=== PATIENT | male | born 1945 | race Caucasian/White ===

== ENCOUNTER 2017-06-07 09:04 | Outpatient (CLI) | payer MEDICARE, OTHER ==
[2017-06-07 10:00] VITALS: BMI 30.4
[2017-06-07 11:44] LABS: Hematocrit 47.8 % (42.0-52.0); Mean Platelet Volume 7.3 fL (7.4-10.4); Red Blood Cell (RBC) Count 5.13 mill/uL (4.70-6.10); White Blood Cell (WBC) Count 7.3 thou/uL (4.8-10.8)
[2017-06-07 11:50] LABS: Bilirubin Negative (Negative); Blood, Urine Negative (Negative); Glucose, Urine (Dipstick) Negative (Negative); Ketone, Urine Negative (Negative); Nitrite Negative (Negative); PTT 27.9 SEC (22.9-36.1); Protein, Urine (Dipstick) Negative (Neg-Trace); Prothrombin Time 13.6 SEC (12.0-14.7); Urobilinogen 0.2 mg/dL (0.2-1.0)
[2017-06-07 11:52] LABS: Bacteria/HPF None Seen HPF (None Seen); Hyaline Casts/LPF 0-3 HYALINE CAST LPF (0-3 Hyaline); RBC/HPF 0-3 HPF (0-3); Squamous Epithelial None Seen HPF (0-3); WBC/HPF None Seen HPF (0-3)
[2017-06-07 12:01] LABS: Anion Gap 13 mmol/L (10-20); BUN (Urea Nitrogen) 17 mg/dL (8.4-25.7); Calc. Creatinine Clearance 89 mL/min (70-130); Calcium 9.7 mg/dL (7.8-10.44); Carbon Dioxide 27 mmol/L (23-31); Chloride 101 mmol/L (98-107); Estimated GFR-MDRD 75
== END 2017-06-07 09:05 | disposition home or self-care (01) ==
LOC: LABBT 09:04
PROVIDERS: ATTEND Orthopaedic Surgery
DX: Z01.818 Encounter for other preprocedural examination (principal); M17.12 Unilateral primary osteoarthritis, left knee
CPT/HCPCS: 80048; 81001; 85027; 85610; 85730; 86850; 86900; 86901; 87081; 93005; 93010

== ENCOUNTER 2017-06-07 09:30 | Inpatient (IN) | payer MEDICARE, OTHER ==
--- NOTE | 2017-06-09 22:26 | HP ---
DATE OF SERVICE: 06/14/2017 HISTORY OF PRESENT ILLNESS: The patient is a 71-year-old male who has had progressive problems with his right knee which have become much worse over the past 2 months. There has been no injury. The pain is very similar to what he had in his right knee prior to knee replacement surgery almost 3 ye ars ago. The pain is interfering with day-to-day activities including walking, getting dressed, and sleeping. He can no longer fully extend his knee. PAST MEDICAL HISTORY: As noted above. The patient has a history of hypertension, heart block, and arthritis. CURRENT MEDICATIONS: He normally takes Plavix but has stopped this one week preoperatively, but has continued aspirin. His other medications include vitamins, Zyrtec, amlodipine, hydrochlorothiazide and Zetia. ALLERGIES: He is allergic to KEFLEX and BETADINE. He has obtained cardiac clearance from Dr. Jace maguire. FAMILY HISTORY, SOCIAL HISTORY AND REVIEW OF SYSTEMS: Otherwise unremarkable. PHYSICAL EXAMINATION: GENERAL: Reveals a healthy male. HEENT: Unremarkable. NECK: Supple. CHEST: Clear. HEART: Regular rate and rhythm. ABDOMEN: Soft, nontender. RECTAL/GENITAL: Deferred. EXTREMITIES: Pertinent findings related to the left knee, there is mild varus. There is tenderness and crepitus over the medial joint line. Range of motion is 5-125 degrees. There are palpable dis sherry pulses. There is a left antalgic gait. NEUROVASCULAR: Intact. There is no instability. X-RAY FINDINGS: X-rays of the left knee reveal DJD and narrowing medially with only minimal joint s pace remaining with a definite progression from x-rays taken 2 years ago. IMPRESSION: 1. Degenerative arthritis of left knee. 2. History of atherosclerotic cardiovascular disease. 3. Status post right total knee replacement. PLAN: Left total knee replacement. The nature of the surgery, length of recovery, and potential co mplications such as infection, loss of motion, incomplete relief, delayed wound healing, neurovascul ar injury, thromboembolic phenomena, and possible transfusion have been discussed in detail as well as the possible need for revision.
[2017-06-14] MEDS ORDERED: Vancomycin HCl 1.5 GM, Admixture Fee 1 EACH in Sodium Chloride 0.9% 250 ML 300 ML IVPB SCH (08:45)
[2017-06-14] MEDS ORDERED: Levofloxacin 500 mg/D5W 100 ml Premix Bag ONE (08:55)
[2017-06-14] MEDS ORDERED: Ropivacaine 0.2% HCl/PF 20 ML ONE (09:07)
[2017-06-14] MEDS ORDERED: Midazolam HCl 2 mg/2 ml Vial ONE (09:07)
[2017-06-14] MEDS ORDERED: Fentanyl 100 MCG/2 ML VIAL ONE (09:07)
[2017-06-14] MEDS ORDERED: Tranexamic Acid 1,000 MG/100 ML BAG ONE ×2 (09:19→13:34)
[2017-06-14] MEDS ORDERED: Ondansetron HCl/PF 4 MG/2 ML Vial IVP PRN ×3 (09:27→14:35)
[2017-06-14] MEDS ORDERED: Zolpidem Tartrate 5 MG TAB PO PRN ×2 (09:27→14:35)
[2017-06-14] MEDS ORDERED: Promethazine HCl 25 MG/ML VIAL IM PRN ×2 (09:27→13:05)
[2017-06-14] MEDS ORDERED: traMADol HCl 50 MG TAB PO PRN ×2 (09:27)
[2017-06-14] MEDS ORDERED: Ropivacaine HCl/PF 250 ML in Premix Bag 1 BAG NERVE BLCK SCH (09:27)
[2017-06-14] MEDS ORDERED: Fentanyl 100 MCG/2 ML VIAL IV PRN (09:29)
[2017-06-14] MEDS ORDERED: Acetaminophen/Codeine 30-300mg Tablet PO PRN ×3 (09:31→14:35)
[2017-06-14] MEDS ORDERED: Ketorolac Tromethamine 30 MG/ML VIAL IVP SCH (12:00)
[2017-06-14] MEDS ORDERED: Propofol 200 MG/20 ML VIAL ONE (12:15)
[2017-06-14] MEDS ORDERED: ePHEDrine/0.9% NaCl/PF SYRINGE 50 mg/10 ml ONE (12:15)
[2017-06-14] MEDS ORDERED: PHENYLEPHRINE-NS 100 MCG/ML 10 ML SYRINGE ONE (12:15)
[2017-06-14] MEDS ORDERED: Promethazine HCl 25 MG/ML VIAL SLOW IVP PRN ×2 (13:05→14:35)
[2017-06-14] MEDS ORDERED: Tranexamic Acid 1,000 MG in Sodium Chloride 0.9% 100 ML IVPB SCH ×2 (13:45→14:35)
[2017-06-14] MEDS ORDERED: diphenhydrAMINE HCl 25 MG CAP PO PRN (14:35)
[2017-06-14] MEDS ORDERED: Fentanyl 100 MCG/2 ML VIAL SLOW IVP PRN ×2 (14:35)
[2017-06-14] MEDS ORDERED: Acetaminophen 325 MG TAB PO PRN (14:35)
--- NOTE | 2017-06-14 15:46 | PDOC.EVN ---
Event Note - Event Note Event Note: Consultation: [id number] L knee DJD * s/p L TKR today * doing well post-op * prn analgesics Atherosclerotic Vascular Disease * Plavix held intra-operatively - defer to ortho as to appropriate date to restart HTN * monitor BP and HR closely
[2017-06-14] MEDS: Sodium Chloride 0.9% 1,000 ML IV SCH ×2 (16:11→23:46)
--- NOTE | 2017-06-14 16:11 | RAD ---
TWO VIEWS LEFT KNEE: 06/14/17 HISTORY: Postop total knee. FINDINGS: Postop total knee replacement. FINDINGS: Postsurgical changes related to left total knee prosthesis are noted. No hardware complication is se en. There is no fracture or dislocation. Subcutaneous emphysema and edema are seen about the knee re lated to recent postsurgical change. IMPRESSION: Postsurgical change related to recent left total knee prosthesis. POS: [facility]
[2017-06-14] MEDS: traMADol HCl 50 MG TAB PO PRN (16:20)
[2017-06-14] MEDS: Ketorolac Tromethamine 30 MG/ML VIAL IVP SCH ×2 (16:26→23:00)
--- NOTE | 2017-06-14 17:17 | OP ---
DATE OF PROCEDURE: 06/14/2017 SURGEON: Jamil Charles M.D. ROD FILLER: Josh Andrade PA-C. ANESTHESIA: General plus femoral and sciatic nerve blocks. PREOPERATIVE DIAGNOSIS: Degenerative arthritis, left knee. POSTOPERATIVE DIAGNOSIS: Degenerative arthritis, left knee. PROCEDURES: Left total knee replacement with cemented Triathlon components with computer-assisted n avigation. NARRATIVE REPORT: After satisfactory anesthesia was induced in supine position, sequential compress ion device was placed on the non-operative leg throughout the procedure. The patient's left leg was then prepped and draped in routine sterile fashion, elevated and the tourniquet inflated to 300 mmH g. A gently curved medial parapatellar incision was then made and carried down to subcutaneous tiss ues. Bleeding points controlled with cautery. Medial parapatellar arthrotomy was performed. Paredes la dislocated laterally and portions of the fat pad were excised for exposure. There was marked deg enerative arthritis of the knee, especially medially, with large areas of exposed bone. Meniscal re mnants and osteophytes were removed. Using the [employer] pinless navigation system and the appropriat e guides, the distal femoral and proximal tibial articular surfaces were excised with an oscillating saw to accept the trial components. It was felt that a #5 femoral component and #5 tibial baseplat e with 9 mm CS plastic insert gave appropriate size, fit, stability, and correction of the preoperat rell deformity. The patellar articular surface was excised to accept an all plastic A32 patellar com ponent. There was good range of motion, good patellar tracking. The trial components were removed. The posterior capsule and subcutaneous tissues were injected with a mixture of 30 mL of 0.25% Mamadou meño and 60 mL of 1% lidocaine with epinephrine. The bony surfaces were thoroughly irrigated with p ulsatile lavage and the surfaces thoroughly cleaned and dried. The permanent components were then c emented in a single stage using 1 package of cement premixed with 1 gram of tobramycin powder. Exce ss cement was removed. There was again good fit and stability of the components. The knee was agai n irrigated. The medial retinaculum and quadriceps mechanism was closed with interrupted #2 Vicryl and a running #2 Quill. The subcutaneous tissues were closed with running 0 Quill suture and the sk in closed with running subcuticular 3-0 Monoderm and SurgiSeal skin adhesive. A sterile bulky compr essive dressing was applied and the tourniquet deflated after 59 minutes. The foot promptly pinked up. A sequential compression device was placed on his operated leg. He was then awakened and taken to recovery room in stable condition. There were no apparent intraoperative complications. The es timated blood loss was less than 100 mL
[2017-06-14] MEDS: Ferrous Gluconate 324 MG TAB PO SCH (20:41)
[2017-06-14] MEDS: Senokot S 8.6-50 MG TAB PO SCH (20:41)
[2017-06-14] MEDS: Aspirin 325 MG TAB PO SCH (20:41)
[2017-06-14] MEDS: Acetaminophen/Codeine 30-300mg Tablet PO PRN (20:54)
[2017-06-14] MEDS ORDERED: Vancomycin HCl 1.5 GM in Sodium Chloride 0.9% 250 ML 300 ML IVPB SCH (21:00)
--- NOTE | 2017-06-14 21:42 | CON ---
DATE OF CONSULTATION: 06/14/2017 at 3:39 p.m. CHIEF COMPLAINT: Left knee DJD with knee pain, status post left TKR today. HISTORY OF PRESENT ILLNESS: This is a very pleasant 71-year-old male who has been having chronic le ft knee pain secondary to degenerative joint disease. He is status post electrolytes TKR today. Th e procedure appears to have went well, he is complaining of moderate pain at this time. He denies a ny fevers, chills, chest pain or shortness of breath. He also denies any nausea, vomiting or headac hes. With regards to the patient's Plavix for which he takes for atherosclerotic cardiovascular disease, this has been held prior to his surgery. REVIEW OF SYSTEMS: A 14-point review of systems is negative except as otherwise indicated above in the HPI. PAST MEDICAL HISTORY: 1. Right knee DJD, status post right total knee replacement. 2. Left knee DJD, now status post left total knee replacement today. 3. Hypertension. PAST SURGICAL HISTORY: 1. Appendectomy. 2. Tonsillectomy. 3. Right TKR. 4. Left TKR today. FAMILY HISTORY: Positive for \\\\"heart problems.\\\\" SOCIAL HISTORY: The patient denies any tobacco, alcohol or illicit drug use currently. ALLERGIES AND MEDICATIONS: Reviewed, please refer to chart for details. PHYSICAL EXAMINATION: VITAL SIGNS: Reviewed, please refer to chart for details. GENERAL: The patient was lying comfortably in bed when I entered the room in no acute distress. HEENT: Normocephalic and atraumatic. NECK: Supple. No rigidity. LYMPH NODES: No cervical or supraclavicular lymphadenopathy. CARDIOVASCULAR: S1 and S2 audible with regular rate and rhythm. LUNGS: Clear to auscultation bilaterally with no wheezes, rales or rhonchi. ABDOMEN: Soft and nontender with positive bowel sounds. No guarding, rebound or rigidity. GENITOURINARY: No cerebrovascular accident tenderness bilaterally. No suprapubic tenderness either . MUSCULOSKELETAL: No calf tenderness bilaterally. EXTREMITIES: No clubbing or cyanosis of the extremities. The patient does have a left lower extrem ity wrap with ice pack on his left knee. I did not remove his dressings. PSYCHIATRIC: Appropriate and cooperative. NEUROLOGIC: Alert and oriented x3, answering questions appropriately with judgment intact. SKIN: Warm and dry with moist mucous membranes. LABS AND IMAGING: Prior to his surgery today, these have been reviewed. Please refer the chart for details. ASSESSMENT AND PLAN: This is a 71-year-old male presenting for elective left total knee replacement secondary to left knee degenerative joint disease. 1. Left knee degenerative joint disease, status post elective left total knee replacement today. T he patient is doing very well postoperatively. We will continue current p.r.n. analgesics and Ortho pedic Surgery is following. 2. Atherosclerotic cardiovascular disease. The patient's Plavix has been held prior to surgery, we will defer to Orthopedic Surgery as to the appropriate necessity of restarting. 3. Hypertension. Monitor blood pressure and heart rate closely. 4. We will check CBC and basal metabolic panel in the morning to monitor for acute blood loss anemi a secondary to surgery and any electrolyte derangements that may occur.
[2017-06-15] MEDS: Acetaminophen/Codeine 30-300mg Tablet PO PRN ×4 (01:17→20:19)
[2017-06-15 06:22] LABS: #Basophils 0.1 thou/uL (0.0-0.2); #Eosinphils 0.1 thou/uL (0.0-0.7); #Lymphocytes 2.2 thou/uL (1.20-3.40); #Monocytes 0.7 thou/uL (0.11-0.59); #Neutrophils 6.7 thou/uL (1.40-6.50); %Basophils 0.8 % (0.0-1.0); %Eosinophils 1.3 % (0.0-10.0); %Lymphocytes 22.5 % (21.0-51.0); %Monocytes 7.3 % (0.0-10.0); Hematocrit 37.5 % (42.0-52.0); Mean Platelet Volume 7.2 fL (7.4-10.4); Red Blood Cell (RBC) Count 4.02 mill/uL (4.70-6.10); White Blood Cell (WBC) Count 9.8 thou/uL (4.8-10.8)
[2017-06-15] MEDS: Ketorolac Tromethamine 30 MG/ML VIAL IVP SCH ×3 (06:24→22:55)
[2017-06-15 06:42] LABS: Anion Gap 7 mmol/L (10-20); BUN (Urea Nitrogen) 14 mg/dL (8.4-25.7); Calc. Creatinine Clearance 0 mL/min (70-130); Calcium 8.4 mg/dL (7.8-10.44); Carbon Dioxide 30 mmol/L (23-31); Chloride 101 mmol/L (98-107); Estimated GFR-MDRD Greater than 90
[2017-06-15] MEDS ORDERED: Mag-Al 1200 mg/1200 mg/30 ML UDCUP PO PRN (06:50)
[2017-06-15] MEDS ORDERED: Loperamide HCl 2 MG CAP PO PRN (06:50)
[2017-06-15] MEDS ORDERED: Milk Of Magnesia 30 ML UDCUP PO PRN (06:50)
[2017-06-15] MEDS ORDERED: Diabetic Tussin 200 MG/10 ML UDCUP PO PRN (06:50)
[2017-06-15] MEDS ORDERED: Eucerin (Mineral Oil/Petrolatum,White) 30 gm Jar TOP PRN (06:50)
[2017-06-15] MEDS ORDERED: Benzonatate 100 MG CAP PO PRN (06:50)
[2017-06-15] MEDS ORDERED: Ondansetron ODT 4 MG TAB PO PRN (06:50)
[2017-06-15] MEDS ORDERED: Senokot 8.6 MG TAB PO PRN (06:50)
[2017-06-15] MEDS: traMADol HCl 50 MG TAB PO PRN (07:48)
[2017-06-15] MEDS: Aspirin 325 MG TAB PO SCH ×2 (07:49→20:19)
[2017-06-15] MEDS: Famotidine 20 MG TAB PO SCH ×2 (07:50→20:20)
[2017-06-15] MEDS: Multivitamin W/ Minerals 1 TAB PO SCH (07:50)
[2017-06-15] MEDS: Ferrous Gluconate 324 MG TAB PO SCH ×2 (07:51→20:20)
[2017-06-15] MEDS: Senokot S 8.6-50 MG TAB PO SCH ×2 (07:51→20:20)
[2017-06-15] MEDS: Sodium Chloride 0.9% 1,000 ML IV SCH ×2 (11:42→19:38)
--- NOTE | 2017-06-15 11:57 | PDOC.PN ---
- Subjective Encounter Start Date: 06/15/17 Encounter Start Time: 07:15 -: old records requested/rev Patient seen and examined. No new complaints. No overnight events - Objective Resuscitation Status: Resuscitation Status FULL:Full Resuscitation MAR Reviewed: Yes Vital Signs & Weight: Vital Signs (12 hours) Temp Pulse Resp BP Pulse Ox 06/15/17 04:00 98.7 F 71 18 151/84 H 97 06/15/17 00:00 98.2 F 71 18 164/79 H 97 I&O: 06/14/17 06/15/17 06/16/17 06:59 06:59 06:59 Intake Total 3930.5 Output Total 2100 Balance 1830.5 Result Diagrams: 06/15/17 05:11 06/15/17 05:11 Phys Exam - Physical Examination Constitutional: NAD HEENT: PERRLA, moist MMs, sclera anicteric Neck: no JVD, supple Respiratory: no wheezing, no rales, no rhonchi Cardiovascular: RRR, no significant murmur, no rub Gastrointestinal: soft, non-tender, no distention, positive bowel sounds Musculoskeletal: no edema, pulses present left knee with dressing, nerve block in place Neurological: non-focal, normal sensation, moves all 4 limbs Psychiatric: normal affect, A&O x 3 Skin: no rash, normal turgor Dx/Plan (1) Status post total left knee replacement Code(s): Z96.652 - PRESENCE OF LEFT ARTIFICIAL KNEE JOINT Status: Acute (2) Dyslipidemia Code(s): E78.5 - HYPERLIPIDEMIA, UNSPECIFIED Status: Chronic (3) GERD (gastroesophageal reflux disease) Code(s): K21.9 - GASTRO-ESOPHAGEAL REFLUX DISEASE WITHOUT ESOPHAGITIS Status: Chronic (4) Hypertension Code(s): I10 - ESSENTIAL (PRIMARY) HYPERTENSION Status: Chronic (5) Osteoarthritis Code(s): M19.90 - UNSPECIFIED OSTEOARTHRITIS, UNSPECIFIED SITE Status: Chronic - Plan cont current plan of care, plan discussed w/ family, PT/OT * continue aspirin for DVT prophylaxis * continue pepcid for GI prophylaxis * nerve block as per anesthesia * PT/OT as per [facility] protocol treatment * code status - Full code * medication reviewed as below * symptomatic treatment * discussed with family. Review of Systems - Review of Systems ENT: negative: Ear Pain, Ear Discharge, Nose Pain, Nose Discharge, Nose Congestion, Mouth Pain, Mouth Swelling, Throat Pain, Throat Swelling, Other Respiratory: negative: Cough, Dry, Shortness of Breath, Hemoptysis, SOB with Excertion, Pleuritic Pain, Sputum, Wheezing Cardiovascular: negative: Chest Pain, Palpitations, Orthopnea, Paroxysmal Noc. Dyspnea, Edema, Light Headedness, Other Gastrointestinal: negative: Nausea, Vomiting, Abdominal Pain, Diarrhea, Constipation, Melena, Hematochezia, Other Genitourinary: negative: Dysuria, Frequency, Incontinence, Hematuria, Retention , Other Musculoskeletal: negative: Neck Pain, Shoulder Pain, Arm Pain, Back Pain, Hand Pain, Leg Pain, Foot Pain, Other Skin: negative: Rash, Lesions, Abilio, Bruising, Other - Medications/Allergies Allergies/Adverse Reactions: Allergies Allergy/AdvReac Type Severity Reaction Status Date / Time cephalexin monohydrate Allergy Verified 07/17/14 12:54 [From Keflex] povidone-iodine Allergy Verified 07/17/14 12:54 [From Betadine] soap [From Betadine] Allergy Verified 07/17/14 12:54 hydrocodone AdvReac Verified 08/03/15 18:46 honeydew melon Allergy Uncoded 07/23/14 18:52 Medications: Current Medications Acetaminophen (Tylenol) 650 mg PO Q4H PRN PRN Reason: INIGUEZ/ T > 101F; Mild Pain (1-3) Acetaminophen/Codeine Phosphate (Tylenol #3) 1 tab PO Q4H PRN PRN Reason: Moderate Pain (4-6) Acetaminophen/Codeine Phosphate (Tylenol #3) 2 tab PO Q4H PRN PRN Reason: Moderate Pain (4-6) 2ND LINE Last Admin: 06/15/17 10:08 Dose: 2 tab Al Hydroxide/Mg Hydroxide (Maalox) 15 ml PO Q4H PRN PRN Reason: Heartburn or Indigestion Aspirin (Aspirin) 325 mg PO BID [facility] Last Admin: 06/15/17 07:49 Dose: 325 mg Benzonatate (Tessalon) 100 mg PO Q4H PRN PRN Reason: Cough Diphenhydramine HCl (Benadryl) 25 mg PO Q6H PRN PRN Reason: Itching Famotidine (Pepcid) 20 mg PO BID [facility] Last Admin: 06/15/17 07:50 Dose: 20 mg Fentanyl (Sublimaze) 50 mcg SLOW IVP Q30MIN PRN PRN Reason: Severe Pain (7-10) Fentanyl (Sublimaze) 100 mcg SLOW IVP Q1H PRN PRN Reason: Severe Pain (7-10) Ferrous Gluconate (Fergon) 324 mg PO BID [facility] Last Admin: 06/15/17 07:51 Dose: 324 mg Guaifenesin (Robitussin Sf) 200 mg PO Q4H PRN PRN Reason: Cough Hydralazine HCl (Apresoline) 10 mg SLOW IVP Q4H PRN PRN Reason: Systolic BP > 180 Ropivacaine 250 ml/ Device 250 mls @ 0 mls/hr NERVE BLCK INF [facility] PRN Reason: As Directed Sodium Chloride (Normal Saline 0.9%) 1,000 mls @ 100 mls/hr IV .Q10H [facility] Last Admin: 06/15/17 11:42 Dose: Not Given Iron/Minerals/Multivitamins (Theragran M) 1 tab PO DAILY [facility] Last Admin: 06/15/17 07:50 Dose: 1 tab Ketorolac Tromethamine (Toradol) 15 mg IVP Q8HR [facility] Stop: 06/16/17 14:36 Last Admin: 06/15/17 06:24 Dose: 15 mg Loperamide HCl (Imodium) 2 mg PO PRN PRN PRN Reason: Diarrhea/Loose Stools Magnesium Hydroxide (Milk Of Magnesium) 30 ml PO DAILYPRN PRN PRN Reason: Constipation Mineral Oil/White Petrolatum (Eucerin Cream) 0 gm TOP BIDPRN PRN PRN Reason: Dry Skin Ondansetron HCl (Zofran) 4 mg IVP Q6H PRN PRN Reason: Nausea/Vomiting Ondansetron HCl (Zofran Odt) 4 mg PO Q6H PRN PRN Reason: Nausea/Vomiting Promethazine HCl (Phenergan) 12.5 mg IM Q4H PRN PRN Reason: Nausea Promethazine HCl (Phenergan) 12.5 mg SLOW IVP Q4H PRN PRN Reason: Nausea/Vomiting Senna (Senokot) 2 tab PO HSPRN PRN PRN Reason: Constipation Senna/Docusate Sodium (Senokot S) 2 tab PO BID [facility] Last Admin: 06/15/17 07:51 Dose: 2 tab Sodium Chloride (Flush - Normal Saline) 10 ml IVF PRN PRN PRN Reason: Saline Flush Tramadol HCl (Ultram) 100 mg PO Q6H PRN PRN Reason: Mild Pain (1-3) 2ND LINE Last Admin: 06/15/17 07:48 Dose: 100 mg Zolpidem Tartrate (Ambien) 5 mg PO HSPRN PRN PRN Reason: Insomnia
[2017-06-15 13:08] VITALS: BMI 30.4
[2017-06-15] MEDS ORDERED: Methocarbamol 500 MG TAB PO PRN (16:17)
[2017-06-16] MEDS: Sodium Chloride 0.9% 1,000 ML IV SCH (05:11)
[2017-06-16 05:44] LABS: #Basophils 0.1 thou/uL (0.0-0.2); #Eosinphils 0.2 thou/uL (0.0-0.7); #Monocytes 0.8 thou/uL (0.11-0.59); #Neutrophils 5.9 thou/uL (1.40-6.50); %Basophils 0.6 % (0.0-1.0); %Eosinophils 2.8 % (0.0-10.0); %Monocytes 9.6 % (0.0-10.0); Hematocrit 38.6 % (42.0-52.0); Red Blood Cell (RBC) Count 4.09 mill/uL (4.70-6.10); White Blood Cell (WBC) Count 7.9 thou/uL (4.8-10.8)
[2017-06-16] MEDS: Acetaminophen/Codeine 30-300mg Tablet PO PRN ×2 (05:46→11:28)
[2017-06-16] MEDS: Ketorolac Tromethamine 30 MG/ML VIAL IVP SCH ×2 (05:46→13:39)
[2017-06-16 06:00] LABS: Anion Gap 6 mmol/L (10-20); BUN (Urea Nitrogen) 12 mg/dL (8.4-25.7); Calc. Creatinine Clearance 101 mL/min (70-130); Calcium 8.7 mg/dL (7.8-10.44); Carbon Dioxide 32 mmol/L (23-31); Chloride 101 mmol/L (98-107); Estimated GFR-MDRD 88
[2017-06-16] MEDS: Aspirin 325 MG TAB PO SCH (08:12)
[2017-06-16] MEDS: Multivitamin W/ Minerals 1 TAB PO SCH (08:12)
[2017-06-16] MEDS: Ferrous Gluconate 324 MG TAB PO SCH (08:12)
[2017-06-16] MEDS: Famotidine 20 MG TAB PO SCH (08:13)
[2017-06-16] MEDS: Senokot S 8.6-50 MG TAB PO SCH (08:23)
[2017-06-16] MEDS ORDERED: Hydrochlorothiazide 25 MG TAB PO SCH (09:00)
[2017-06-16] MEDS ORDERED: Non-Formulary Item 1 EACH (Irbesartan/Hydrochlorothiazide [Irbesartan-Hctz 300-12.5 Mg Tb PO SCH (09:00)
[2017-06-16] MEDS ORDERED: Non-Formulary Item 1 EACH (Ubidecarenone [Coq-10] 200 MG) PO SCH (09:00)
[2017-06-16] MEDS ORDERED: Ubidecarenone 50 MG CAP PO SCH (09:00)
--- NOTE | 2017-06-16 10:06 | PDOC.PN ---
- Subjective Encounter Start Date: 06/16/17 Encounter Start Time: 07:30 Patient seen and examined. No new complaints. No overnight events - Objective Resuscitation Status: Resuscitation Status FULL:Full Resuscitation MAR Reviewed: Yes Vital Signs & Weight: Vital Signs (12 hours) Temp Pulse Resp BP Pulse Ox 06/16/17 08:12 80 06/16/17 08:00 98.1 F 75 18 177/94 H 95 06/16/17 07:23 98.7 F 80 18 06/16/17 04:43 98.7 F 80 18 170/85 H 96 06/16/17 00:43 98.7 F 100 18 153/77 H 94 L Weight Admit Weight 200 lb Weight 200 lb I&O: 06/15/17 06/16/17 06/17/17 06:59 06:59 06:59 Intake Total 3930.5 2241.5 Output Total 2100 1000 Balance 1830.5 1241.5 Result Diagrams: 06/16/17 05:15 06/16/17 05:15 Phys Exam - Physical Examination Constitutional: NAD HEENT: PERRLA, moist MMs, sclera anicteric Neck: no JVD, supple Respiratory: no wheezing, no rales, no rhonchi Cardiovascular: RRR, no significant murmur, no rub Gastrointestinal: soft, non-tender, no distention, positive bowel sounds Musculoskeletal: no edema, pulses present left knee with dressing Neurological: non-focal, normal sensation, moves all 4 limbs Psychiatric: normal affect, A&O x 3 Skin: no rash, normal turgor Dx/Plan (1) Status post total left knee replacement Code(s): Z96.652 - PRESENCE OF LEFT ARTIFICIAL KNEE JOINT Status: Acute (2) Dyslipidemia Code(s): E78.5 - HYPERLIPIDEMIA, UNSPECIFIED Status: Chronic (3) GERD (gastroesophageal reflux disease) Code(s): K21.9 - GASTRO-ESOPHAGEAL REFLUX DISEASE WITHOUT ESOPHAGITIS Status: Chronic (4) Hypertension Code(s): I10 - ESSENTIAL (PRIMARY) HYPERTENSION Status: Chronic (5) Osteoarthritis Code(s): M19.90 - UNSPECIFIED OSTEOARTHRITIS, UNSPECIFIED SITE Status: Chronic - Plan cont current plan of care, PT/OT * continue aspirin for DVT prophyalxis * continue protonix for GI prophylaxis * Nerve block as per anesthesia will be removed today * pain controlled * discussed with family * medication reviewed as below * symptomatic treatment * Code status- Full code * continue Ferrous sulfate * overall medically stable. * plan for discharge today * resume home medication * will sign off Review of Systems - Review of Systems ENT: negative: Ear Pain, Ear Discharge, Nose Pain, Nose Discharge, Nose Congestion, Mouth Pain, Mouth Swelling, Throat Pain, Throat Swelling, Other Respiratory: negative: Cough, Dry, Shortness of Breath, Hemoptysis, SOB with Excertion, Pleuritic Pain, Sputum, Wheezing Cardiovascular: negative: Chest Pain, Palpitations, Orthopnea, Paroxysmal Noc. Dyspnea, Edema, Light Headedness, Other Gastrointestinal: negative: Nausea, Vomiting, Abdominal Pain, Diarrhea, Constipation, Melena, Hematochezia, Other Genitourinary: negative: Dysuria, Frequency, Incontinence, Hematuria, Retention , Other Musculoskeletal: negative: Neck Pain, Shoulder Pain, Arm Pain, Back Pain, Hand Pain, Leg Pain, Foot Pain, Other - Medications/Allergies Allergies/Adverse Reactions: Allergies Allergy/AdvReac Type Severity Reaction Status Date / Time cephalexin monohydrate Allergy Verified 07/17/14 12:54 [From Keflex] povidone-iodine Allergy Verified 07/17/14 12:54 [From Betadine] soap [From Betadine] Allergy Verified 07/17/14 12:54 hydrocodone AdvReac Verified 08/03/15 18:46 honeydew melon Allergy Uncoded 07/23/14 18:52 Medications: Current Medications Acetaminophen (Tylenol) 650 mg PO Q4H PRN PRN Reason: INIGUEZ/ T > 101F; Mild Pain (1-3) Acetaminophen/Codeine Phosphate (Tylenol #3) 1 tab PO Q4H PRN PRN Reason: Moderate Pain (4-6) Acetaminophen/Codeine Phosphate (Tylenol #3) 2 tab PO Q4H PRN PRN Reason: Moderate Pain (4-6) 2ND LINE Last Admin: 06/16/17 05:46 Dose: 2 tab Al Hydroxide/Mg Hydroxide (Maalox) 15 ml PO Q4H PRN PRN Reason: Heartburn or Indigestion Amlodipine Besylate (Norvasc) 10 mg PO DAILY [facility] Last Admin: 06/16/17 08:12 Dose: 10 mg Aspirin (Aspirin) 325 mg PO BID [facility] Last Admin: 06/16/17 08:12 Dose: 325 mg Benzonatate (Tessalon) 100 mg PO Q4H PRN PRN Reason: Cough Coenzyme Q10 (Coenzyme Q10) 200 mg PO DAILY [facility] Last Admin: 06/16/17 08:13 Dose: 200 mg Diphenhydramine HCl (Benadryl) 25 mg PO Q6H PRN PRN Reason: Itching Famotidine (Pepcid) 20 mg PO BID [facility] Last Admin: 06/16/17 08:13 Dose: 20 mg Fentanyl (Sublimaze) 50 mcg SLOW IVP Q30MIN PRN PRN Reason: Severe Pain (7-10) Last Admin: 06/15/17 12:54 Dose: 50 mcg Fentanyl (Sublimaze) 100 mcg SLOW IVP Q1H PRN PRN Reason: Severe Pain (7-10) Ferrous Gluconate (Fergon) 324 mg PO BID [facility] Last Admin: 06/16/17 08:12 Dose: 324 mg Guaifenesin (Robitussin Sf) 200 mg PO Q4H PRN PRN Reason: Cough Hydralazine HCl (Apresoline) 10 mg SLOW IVP Q4H PRN PRN Reason: Systolic BP > 180 Last Admin: 06/15/17 20:20 Dose: 10 mg Hydrochlorothiazide (Hydrochlorothiazide) 12.5 mg PO DAILY [facility] Last Admin: 06/16/17 08:13 Dose: 12.5 mg Ropivacaine 250 ml/ Device 250 mls @ 0 mls/hr NERVE BLCK INF [facility] PRN Reason: As Directed Last Admin: 06/15/17 15:14 Dose: 250 mls Irbesartan (Avapro) 300 mg PO DAILY [facility] Last Admin: 06/16/17 08:14 Dose: 300 mg Iron/Minerals/Multivitamins (Theragran M) 1 tab PO DAILY [facility] Last Admin: 06/16/17 08:12 Dose: 1 tab Ketorolac Tromethamine (Toradol) 15 mg IVP Q8HR [facility] Stop: 06/16/17 14:36 Last Admin: 06/16/17 05:46 Dose: 15 mg Loperamide HCl (Imodium) 2 mg PO PRN PRN PRN Reason: Diarrhea/Loose Stools Loratadine (Claritin) 10 mg PO [facility] Magnesium Hydroxide (Milk Of Magnesium) 30 ml PO DAILYPRN PRN PRN Reason: Constipation Methocarbamol (Robaxin) 750 mg PO BIDPRN PRN PRN Reason: Muscle Spasm Last Admin: 06/15/17 20:35 Dose: 750 mg Mineral Oil/White Petrolatum (Eucerin Cream) 0 gm TOP BIDPRN PRN PRN Reason: Dry Skin Ondansetron HCl (Zofran) 4 mg IVP Q6H PRN PRN Reason: Nausea/Vomiting Ondansetron HCl (Zofran Odt) 4 mg PO Q6H PRN PRN Reason: Nausea/Vomiting Pitavastatin Calcium ([Livalo] 4 Mg) 0 each PO HS [facility] Promethazine HCl (Phenergan) 12.5 mg IM Q4H PRN PRN Reason: Nausea Promethazine HCl (Phenergan) 12.5 mg SLOW IVP Q4H PRN PRN Reason: Nausea/Vomiting Senna (Senokot) 2 tab PO HSPRN PRN PRN Reason: Constipation Senna/Docusate Sodium (Senokot S) 2 tab PO BID [facility] Last Admin: 06/16/17 08:23 Dose: Not Given Sodium Chloride (Flush - Normal Saline) 10 ml IVF PRN PRN PRN Reason: Saline Flush Last Admin: 06/16/17 05:47 Dose: 10 ml Tramadol HCl (Ultram) 100 mg PO Q6H PRN PRN Reason: Mild Pain (1-3) 2ND LINE Last Admin: 06/15/17 07:48 Dose: 100 mg Zolpidem Tartrate (Ambien) 5 mg PO HSPRN PRN PRN Reason: Insomnia
--- NOTE | 2017-06-16 12:51 | DIS ---
DATE OF ADMISSION: 06/14/2017 DATE OF DISCHARGE: 06/16/2017 PRIMARY CARE PHYSICIAN: Dr. Ekta Robins. DISCHARGE DISPOSITION: Home. PRIMARY DISCHARGE DIAGNOSIS: Status post left total knee replacement. SECONDARY DISCHARGE DIAGNOSES: Hypertension, dyslipidemia, gastroesophageal reflux disease, osteoar thritis. PRIMARY PROCEDURE/OPERATION: Left total knee replacement. RADIOLOGICAL INVESTIGATION: Knee x-ray. SIGNIFICANT LABORATORY DATA: Hemoglobin 12.8 and creatinine 0.86. DISCHARGE MEDICATIONS: Tylenol No. 3 one to two tablets q.6 hourly p.r.n., amlodipine 10 mg p.o. da emeka, aspirin 325 mg p.o. daily, cetirizine 10 mg p.o. at bedtime, Plavix 75 mg p.o. daily, valsartan with hydrochlorothiazide one tablet p.o. daily, Livalo 4 mg p.o. at bedtime, ranitidine 300 mg p.o. at bedtime, and Coenzyme Q10 200 mg p.o. daily. CONTRAINDICATIONS: None. CODE STATUS: FULL CODE. INPATIENT CONSULTANTS: Dr. Charles was primary sound team was consulted for medical management. ALLERGIES: KEFLEX and HYDROCODONE. DISCHARGE PLAN: Post hospital, the patient will follow up with Dr. Charles on 07/06/2017. The patien t will make appointment with primary care physician in 1 week. HOSPITAL COURSE: A 71-year-old female who was admitted by Dr. Charles for right total knee replacemen t which was done on 06/14/2017 without any complication. Postoperatively, the patient did very well , patient was given aspirin for DVT prophylaxis and Pepcid for GI prophylaxis. Today, patient is pl anned for discharge, we will sign off today. The patient is seen and examined at bedside today. Pl ease see my progress note from today for further details. On discharge, patient will resume all her home medication.
[2017-06-16] MEDS ORDERED: Lidocaine 2% Viscous Solution 10 ML, Aluminum & Magnesium Hydroxide 30 ML SSW SCH ×2 (13:30)
[2017-06-16 13:42] LABS: Troponin I 0.012 ng/mL (< 0.028)
[2017-06-16 15:42] VITALS: BP 170/77; TEMP 98.3
[2017-06-16] MEDS ORDERED: Cetirizine HCl 10 MG TAB PO SCH (21:00)
[2017-06-16] MEDS ORDERED: Loratadine 10 MG TAB PO SCH (21:00)
[2017-06-16] MEDS ORDERED: Non-Formulary Item 1 EACH (Pitavastatin Calcium [Livalo] 4 MG) PO SCH (21:00)
[2017-06-16] MEDS ORDERED: Pitavastatin Calcium [Livalo] 4 MG PO SCH (21:00)
== END 2017-06-16 16:26 | disposition home or self-care (01) | DRG 470 ==
LOC: SJJU 06-14 08:13
PROVIDERS: ADMIT Orthopaedic Surgery; ATTEND Orthopaedic Surgery
PROC: 0SRC0J9 Replacement of Right Knee Joint with Synthetic Substitute, Cemented, Open Approach (ICD-10-PCS; principal; 2017-06-14)
PROC: 3E0T3BZ Introduction of Anesthetic Agent into Peripheral Nerves and Plexi, Percutaneous Approach (ICD-10-PCS; 2017-06-14)
PROC: 8E0YXBZ Computer Assisted Procedure of Lower Extremity (ICD-10-PCS; 2017-06-14)
DX: M17.12 Unilateral primary osteoarthritis, left knee (principal); I10 Essential (primary) hypertension; K21.9 Gastro-esophageal reflux disease without esophagitis; E78.5 Hyperlipidemia, unspecified; I25.10 Atherosclerotic heart disease of native coronary artery without angina pectoris; Z88.1 Allergy status to other antibiotic agents; Z91.09 Other allergy status, other than to drugs and biological substances; Z96.651 Presence of right artificial knee joint; Z88.5 Allergy status to narcotic agent
CPT/HCPCS: 36415; 80048; 82553; 83690; 84484; 85025; 93005; 93010; C1713; C1776; G8978-GP-CM; G8979-GP-CJ; J0360; J1170; J1885; J1956; J2250; J2704; J2795; J3010; J3370; J7050; Q0162

== ENCOUNTER 2017-08-05 16:17 | Observation (INO) | payer MEDICARE, OTHER ==
--- NOTE | 2017-08-05 16:46 | RAD ---
AP VIEW OF THE CHEST 08/05/17 INDICATION: Back pain. IMPRESSION: No acute cardiopulmonary abnormality. The examination is not appreciably changed from comparison date d 08/03/15. POS: [facility]
[2017-08-05 16:57] LABS: #Basophils 0.1 thou/uL (0.0-0.2); #Eosinphils 0.2 thou/uL (0.0-0.7); #Monocytes 0.5 thou/uL (0.11-0.59); %Basophils 0.8 % (0.0-1.0); %Eosinophils 2.2 % (0.0-10.0); %Lymphocytes 22.7 % (21.0-51.0); %Monocytes 5.8 % (0.0-10.0); Hematocrit 45.1 % (42.0-52.0); Mean Platelet Volume 6.2 fL (7.4-10.4); Red Blood Cell (RBC) Count 4.79 mill/uL (4.70-6.10); White Blood Cell (WBC) Count 8.7 thou/uL (4.8-10.8)
[2017-08-05 17:24] LABS: Troponin I Less than 0.010 ng/mL (< 0.028)
[2017-08-05 17:26] LABS: ALT (SGPT) 12 U/L (8-55); AST (SGOT) 19 U/L (5-34); Alkaline Phosphatase 60 U/L (40-150); Anion Gap 12 mmol/L (10-20); BUN (Urea Nitrogen) 17 mg/dL (8.4-25.7); Bilirubin, Total 0.5 mg/dL (0.2-1.2); CK (CPK) 124 U/L (30-200); Calc. Creatinine Clearance 0 mL/min (70-130); Calcium 9.8 mg/dL (7.8-10.44); Carbon Dioxide 30 mmol/L (23-31); Chloride 100 mmol/L (98-107); Estimated GFR-MDRD 90; Globulin 3.3 g/dL (2.4-3.5); Lipase 23 U/L (8-78); Protein, Total 7.9 g/dL (5.8-8.1)
[2017-08-05 17:41] LABS: Bilirubin Negative (Negative); Blood, Urine Negative (Negative); Glucose, Urine (Dipstick) Negative (Negative); Ketone, Urine Negative (Negative); Nitrite Negative (Negative); Protein, Urine (Dipstick) Negative (Neg-Trace); Urobilinogen 0.2 mg/dL (0.2-1.0)
[2017-08-05 21:03] LABS: Troponin I Less than 0.010 ng/mL (< 0.028)
[2017-08-05] MEDS ORDERED: Aspirin 325 MG TAB PO SCH (22:30)
[2017-08-05] MEDS ORDERED: Sodium Chloride 0.9% 1,000 ML IV SCH (22:30)
[2017-08-05 22:35] VITALS: BMI 30.5
[2017-08-05 23:12] LABS: Troponin I Less than 0.010 ng/mL (< 0.028)
[2017-08-05] MEDS ORDERED: Milk Of Magnesia 30 ML UDCUP PO PRN (23:22)
[2017-08-05] MEDS ORDERED: Acetaminophen 325 MG TAB PO PRN (23:22)
[2017-08-05] MEDS ORDERED: hydrALAZINE 20 MG/ML VIAL SLOW IVP PRN (23:22)
[2017-08-05] MEDS ORDERED: Nitroglycerin 0.4 MG TAB (25 Tab Bottle) PO PRN (23:22)
[2017-08-05] MEDS ORDERED: Senokot 8.6 MG TAB PO PRN (23:22)
[2017-08-05] MEDS ORDERED: cloNIDine 0.1 MG TAB PO PRN (23:22)
[2017-08-05] MEDS ORDERED: Calcium Carbonate 500 MG ChewTAB PO PRN (23:22)
[2017-08-05] MEDS ORDERED: PROVENTIL INHALER 6.7 G (200 INHALATIONS) INH PRN (23:28)
--- NOTE | 2017-08-06 00:17 | HP ---
DATE OF ADMISSION: 08/05/2017 PRIMARY CARE PHYSICIAN: Dr. Dash. PRIMARY FOIL OPERATOR: Dr. Mcintyre. CHIEF COMPLAINT: Chest discomfort. CODE STATUS: FULL CODE. SURROGATE DECISION-MAKER: Patient makes his own decisions with the help of his family. HISTORY OF PRESENT ILLNESS: Patient is a 72-year-old white male with coronary artery disease, hypert ension, hyperlipidemia, and GERD, presented to the emergency room with chest discomfort. Earlier today while he was at home, he developed chest discomfort that was mainly localized around th e neck radiating to his jaw. He also had difficulty swallowing. He checked his blood pressure at th at time, which was in systolic 200s. The severity was 5/10, dull in nature without any aggravating o r relieving factor. He took 325 aspirin and presented to the emergency room. In the emergency room, his EKG showed normal sinus rhythm without significant ST-T wave changes. Troponins were normal. I nitial vital signs showed temperature 98.5, respiration 18, pulse of 82, blood pressure 172/99 with O 2 saturation 97% on room air. Patient recently underwent left total knee replacement. He also notic ed some swelling along with discomfort in the left leg. He also gets some shortness of breath on mod erate exertion. PAST MEDICAL HISTORY: 1. Coronary artery disease with last cardiac catheterization in 2010 that was positive for coronary artery disease. Medical management was recommended. 2. Hypertension. 3. Obstructive sleep apnea. 4. Gastroesophageal reflux disease. 5. Mild intermittent asthma. PAST SURGICAL HISTORY: 1. Cardiac catheterization in 2010. 2. Appendectomy. 3. Bilateral knee replacement. 4. Tonsillectomy. ALLERGIES: Patient is allergic to KEFLEX, HYDROCODONE, IODINE. CURRENT HOME MEDICATIONS: Proventil 2 puffs as needed, amlodipine 10 mg daily, aspirin 325 mg daily, Zyrtec 10 mg at bedtime, Plavix 75 mg daily, Zetia 10 mg daily, irbesartan/HCTZ 300/12.5 daily, Liva lo 2 mg daily, ranitidine 300 mg at bedtime, Coenzyme Q10 400 mg daily. SOCIAL HISTORY: He drinks socially. Denies any smoking or drug use. FAMILY HISTORY: Positive for several family members with coronary artery disease. Sister with coron renee artery disease at age of 37. One brother of complications from heart disease at age of 69. REVIEW OF SYSTEMS: The following complete review of systems was negative, unless otherwise mentioned in the HPI or below: CONSTITUTIONAL: Weight loss or gain, ability to conduct usual activities. SKIN: Rash, itching. EYES: Double vision, pain. ENT/MOUTH: Nose bleeding, neck stiffness, pain, tenderness. CARDIOVASCULAR: Palpitations, dyspnea on exertion, orthopnea. RESPIRATORY: Shortness of breath, wheezing, cough, hemoptysis, fever or night sweats. GASTROINTESTINAL: Poor appetite, abdominal pain, heartburn, nausea, vomiting, constipation, or diarr hea. GENITOURINARY: Urgency, frequency, dysuria, nocturia. MUSCULOSKELETAL: Pain, swelling. NEUROLOGIC/PSYCHIATRIC: Anxiety, depression. ALLERGY/IMMUNOLOGIC: Skin rash, bleeding tendency. PHYSICAL EXAMINATION: VITAL SIGNS: As discussed above. GENERAL: A 72-year-old male in no apparent distress, chest discomfort has improved. HEENT: Head atraumatic, normocephalic. Sclerae are anicteric. Moist mucous membranes. No oral les ion. NECK: Supple, no JVD appreciated. No carotid bruit. LUNGS: Clear to auscultation bilaterally, no wheezing, rales, or rhonchi. HEART: S1, S2 present, 2/6 systolic murmur over the left lateral sternal border. No heaves or pulsa tion. ABDOMEN: Soft, nontender, bowel sounds present. EXTREMITIES: 1+ edema in left lower extremity with some tenderness. Right lower extremity without a ny tenderness. SKIN: Warm and dry. LYMPH NODES: No palpable lymph nodes in the neck. PERIPHERAL VASCULAR: Radial pulses palpable bilaterally. MUSCULOSKELETAL: No joint swelling or tenderness. LABORATORY FINDINGS: CBC showed WBC of 8.7, hemoglobin 15.1, hematocrit 45.1, platelet 313. [employer] marlee showed sodium 138, potassium 4, chloride 100, bicarb 30, BUN 12, creatinine of 0.84. Troponins were normal. Urinalysis was negative for wbc bacteria. EKG by my review as discussed above. Chest x-ray by my review was negative for infiltrate. IMPRESSION: 1. Chest discomfort. Patient has history of coronary artery disease with last cardiac catheterizati on [place] [address] Mcintyre. 2. Hypertension 3. Hyperlipidemia. 4. Obstructive sleep apnea. 5. Chronic kidney disease stage 2. 6. Obesity with a BMI 30.5. 7. Gastroesophageal reflux disease. 8. Mild intermittent asthma. PLAN: Patient will be monitored on the telemetry unit. Cardiology will be consulted. Patient had a dverse reaction during the chemical stress test last time per patient report. We will resume his raquel e medications. We will keep him n.p.o. past midnight. Further management per Cardiology. Due to re cent surgery as well as left leg swelling, we will rule out deep venous thrombosis.
--- NOTE | 2017-08-06 07:46 | ULT ---
BILATERAL LOWER EXTREMITY VENOUS DOPPLER ULTRASOUND: HISTORY: Bilateral lower extremity edema. Recent left knee replacement in May 2017. TECHNIQUE: Sommers scale ultrasound with color flow and spectral Doppler imaging of the deep venous systems of the lower extremities was performed bilaterally. FINDINGS: There is good flow, compression, and augmentation noted in the common femoral, femoral, deep femoral, popliteal, posterior tibial, and greater saphenous veins on either side. IMPRESSION: No evidence of deep vein thrombosis in either lower extremity. POS: [facility]
[2017-08-06] MEDS ORDERED: Ezetimibe 10 MG TAB PO SCH (09:00)
[2017-08-06] MEDS ORDERED: Clopidogrel Bisulfate 75 MG TAB PO SCH (09:00)
[2017-08-06] MEDS ORDERED: Ubidecarenone 50 MG CAP PO SCH (09:00)
[2017-08-06] MEDS ORDERED: Amlodipine 10 MG TAB PO SCH ×2 (09:00→21:00)
[2017-08-06] MEDS ORDERED: Aspirin 325 MG TAB PO SCH (09:00)
[2017-08-06] MEDS ORDERED: Hydrochlorothiazide 25 MG TAB PO SCH (09:00)
[2017-08-06] MEDS ORDERED: Famotidine 20 MG TAB PO SCH (09:00)
[2017-08-06] MEDS ORDERED: Regadenoson 0.4 MG/5 ML SYRINGE ONE (11:17)
--- NOTE | 2017-08-06 14:03 | PDOC.PN ---
- Subjective Encounter Start Date: 08/06/17 Encounter Start Time: 09:30 Patient seen and examined. No new complaints. No overnight events - Objective Resuscitation Status: Resuscitation Status FULL:Full Resuscitation MAR Reviewed: Yes Vital Signs & Weight: Vital Signs (12 hours) Temp Pulse Resp BP Pulse Ox 08/06/17 07:56 88 08/06/17 07:45 97.5 F L 88 18 08/06/17 07:35 97.5 F L 88 18 134/82 98 08/06/17 04:05 98.1 F 76 18 135/76 97 Weight Admit Weight 200 lb 12.8 oz Weight 200 lb 12.8 oz I&O: 08/05/17 08/06/17 08/07/17 06:59 06:59 06:59 Intake Total 800 Output Total 650 Balance 150 Result Diagrams: 08/05/17 16:47 08/05/17 16:47 EKG Reviewed by me: Yes (Tele SR) Phys Exam - Physical Examination Constitutional: NAD Respiratory: no wheezing, no rhonchi Cardiovascular: RRR, no rub Gastrointestinal: soft, non-tender, positive bowel sounds Musculoskeletal: no edema Neurological: moves all 4 limbs Dx/Plan - Plan DVT proph w/SCDs IMPRESSION: 1. Chest discomfort. Patient has history of coronary artery disease with last cardiac catheterization [place] [address] Mcintyre. 2. Hypertension 3. Hyperlipidemia. 4. Obstructive sleep apnea. 5. Chronic kidney disease stage 2. 6. Obesity with a BMI 30.5. 7. Gastroesophageal reflux disease. 8. Mild intermittent asthma. PLAN: * Await Cardiology input * NPO * Cont current meds as below Review of Systems - Review of Systems Respiratory: negative: Cough, Dry, Shortness of Breath, Hemoptysis, SOB with Excertion, Pleuritic Pain, Sputum, Wheezing Cardiovascular: negative: Chest Pain, Palpitations, Orthopnea, Paroxysmal Noc. Dyspnea, Edema, Light Headedness - Medications/Allergies Allergies/Adverse Reactions: Allergies Allergy/AdvReac Type Severity Reaction Status Date / Time cephalexin monohydrate Allergy Verified 07/17/14 12:54 [From Keflex] povidone-iodine Allergy Verified 07/17/14 12:54 [From Betadine] soap [From Betadine] Allergy Verified 07/17/14 12:54 hydrocodone AdvReac Verified 08/03/15 18:46 honeydew melon Allergy Uncoded 07/23/14 18:52 Medications: Current Medications Acetaminophen (Tylenol) 650 mg PO Q4H PRN PRN Reason: Headache/Fever or Pain Albuterol Sulfate (Proventil Hfa) 2 puff INH Q4H PRN PRN Reason: SOB &/or Wheezing Amlodipine Besylate (Norvasc) 10 mg PO DAILY [facility] Last Admin: 08/06/17 07:56 Dose: Not Given Aspirin (Aspirin) 325 mg PO DAILY [facility] Last Admin: 08/06/17 07:56 Dose: Not Given Atorvastatin Calcium (Lipitor) 10 mg PO HS [facility] Calcium Carbonate (Tums) 1,000 mg PO Q4H PRN PRN Reason: Heartburn or Indigestion Cetirizine HCl (Zyrtec) 10 mg PO HS [facility] Clonidine (Catapres) 0.1 mg PO Q4H PRN PRN Reason: Systolic BP > 180 Clopidogrel Bisulfate (Plavix) 75 mg PO DAILY [facility] Last Admin: 08/06/17 07:56 Dose: Not Given Coenzyme Q10 (Coenzyme Q10) 400 mg PO DAILY [facility] Last Admin: 08/06/17 07:56 Dose: Not Given Ezetimibe (Zetia) 10 mg PO DAILY [facility] Last Admin: 08/06/17 07:56 Dose: Not Given Famotidine (Pepcid) 20 mg PO BID [facility] Last Admin: 08/06/17 07:56 Dose: Not Given Hydralazine HCl (Apresoline) 10 mg SLOW IVP Q4H PRN PRN Reason: SBP Greater Than 180 Hydrochlorothiazide (Hydrochlorothiazide) 12.5 mg PO DAILY [facility] Last Admin: 08/06/17 07:56 Dose: Not Given Irbesartan (Avapro) 300 mg PO DAILY [facility] Last Admin: 08/06/17 07:56 Dose: Not Given Magnesium Hydroxide (Milk Of Magnesium) 30 ml PO DAILYPRN PRN PRN Reason: Constipation Nitroglycerin (Nitrostat) 0.4 mg PO Q5MIN PRN PRN Reason: Chest Pain Senna (Senokot) 2 tab PO HSPRN PRN PRN Reason: Constipation Sodium Chloride (Flush - Normal Saline) 10 ml IVF PRN PRN PRN Reason: Saline Flush
[2017-08-06 16:08] VITALS: BP 145/78; TEMP 98
--- NOTE | 2017-08-06 19:13 | CON ---
DATE OF CONSULTATION: 08/06/2017 REASON FOR CONSULTATION: Throat and neck pain. HISTORY OF PRESENT ILLNESS: Mr. Martinez is a very pleasant 72-year-old gentleman with history of sing le vessel coronary artery disease with calcified left anterior descending artery stenosis. The patie ru underwent successful knee surgery recently with knee replacement and he was doing well. The patie nt yesterday he had severe episode of tightness in the neck and throat that associated with severe hy pertension. The patient had nitroglycerin to take at home, but did not do that he went ahead and rafiq t to the emergency room. He was found to be very hypertensive. The patient went to the emergency ro om. The EKGs were normal. Troponins were also normal. Blood pressure was very high. PAST MEDICAL HISTORY: 1. Coronary artery disease. 2. Hypertension. 3. Esophageal reflux. 4. Obstructive sleep apnea. PAST SURGICAL HISTORY: Knee replacement done recently. ALLERGIES: KEFLEX and CODEINE as well as IODINE. HOME MEDICATIONS: 1. Proventil. 2. Amlodipine. 3. Plavix. 4. Zetia. 5. Irbesartan HCT. 6. Livalo. SOCIAL HISTORY: Drinks socially. FAMILY HISTORY: Positive for coronary artery disease. REVIEW OF SYSTEMS: CONSTITUTIONAL: No significant weight gain or loss. VISION: No changes. HEARING: No changes. PULMONARY: No cough or wheezing. GASTROINTESTINAL: No nausea, vomiting or diarrhea. SKIN: No rashes. NEUROLOGIC: No unilateral weakness or numbness. PSYCHIATRIC: No unusual depression or anxiety. PHYSICAL EXAMINATION: GENERAL: A pleasant gentleman resting comfortably in no distress. VITAL SIGNS: Blood pressure is 145/78, pulse 70. HEENT: Eyes: Sclerae nonicteric. Mouth mucous membranes moist. NECK: Supple, no lymphadenopathy. LUNGS: Clear, no wheezing, rales or rhonchi. CARDIAC: Normal S1, normal S2. There is no murmur, rub or gallop. ABDOMEN: Soft, nontender. EXTREMITIES: No clubbing, no cyanosis. There is no edema. PERTINENT LABORATORY: Cardiac enzymes were all negative. ASSESSMENT: 1. Chest pain of uncertain etiology. 2. Single vessel coronary artery disease based on catheterization in 2010, calcified lesion in his L AD after diagonal branch. 3. IODINE allergy. PLAN: 1. Proceed with stress testing. 2. If he is okay, he would go home with a Protonix in case this is esophageal in nature. 3. Increase amlodipine to 10 mg twice a day.
--- NOTE | 2017-08-06 19:58 | DIS ---
DATE OF DISCHARGE: DISCHARGE DISPOSITION: Home. FOLLOWUP: 1. Follow up with primary care physician, Dr. Dash in 1 week. 2. Follow up with Dr. Mcintyre in 1-2 weeks. ALLERGIES: The patient is allergic to KEFLEX, IODINE, and HYDROCODONE. The patient was seen and examined on the day of discharge, denies any new complaints. BRIEF HOSPITAL COURSE: The patient is a 72-year-old male with coronary artery disease, hypertension, hyperlipidemia, and GERD, who presented to the hospital with chest discomfort. Please refer to the history and physical dated 08/05/2017 for further details. The patient was admitted to the hospital with the diagnosis of chest discomfort, rule out acute coron renee syndrome. His serial cardiac enzymes were negative. He also had elevated blood pressure of 172/ 99 on admission, that later improved. He was evaluated by Dr. Mcintyre, Cardiology. Cardiolite stress test was performed that was negative for reversible ischemia per verbal report. Official report is pending at this time. Amlodipine dose has been increased to 10 mg twice a day per Cardiology. He wi ll continue aspirin and Plavix. H2 blockers have been changed to PPIs per Cardiology. He has been c leared by Cardiology for discharge. He is chest pain free at this time. The patient was extensively counseled to monitor his blood pressure on the daily basis and maintain a log. FINAL DIAGNOSES: 1. Chest discomfort, acute coronary syndrome ruled out. 2. Coronary artery disease with last cardiac catheterization in 2010. 3. Hypertension with hypertensive urgency on admission. Amlodipine dose has been increased to 10 mg twice a day (total of 20 mg daily per Cardiology). 4. Hyperlipidemia. 5. Gastroesophageal reflux disease, proton pump inhibitors have been started. H2 blockers discontin ued. 6. Mild intermittent asthma. 7. Chronic kidney disease stage 2. 8. Obstructive sleep apnea on CPAP. 9. Hyperlipidemia. Plan of care was discussed with the patient in detail. He stated understanding.
--- NOTE | 2017-08-06 20:19 | NM ---
STRESS ONLY NUCLEAR MEDICINE MYOCARDIAL PERFUSION EXAM 08/06/17 HISTORY: 72-year-old male with chest pain. TECHNIQUE: SPECT imaging of the left ventricular myocardium is obtained during stress following the intravenous administration of 32.2 millicuries technetium 99m labeled Sestamibi. FINDINGS: No perfusion defect is seen within the left ventricular myocardium. Left ventricular wall motion appe ars normal. Left ventricular ejection fraction is 69% with an EDV of 104 mL and ESV of 32 mL. IMPRESSION: Unremarkable stress only nuclear medicine myocardial perfusion scan. POS: [facility]
[2017-08-06] MEDS ORDERED: Cetirizine HCl 10 MG TAB PO SCH (21:00)
[2017-08-06] MEDS ORDERED: Enoxaparin Sodium 40 MG/0.4 ML SYRINGE SC SCH (21:00)
[2017-08-06] MEDS ORDERED: Atorvastatin Calcium 10 MG TAB PO SCH (21:00)
[2017-08-07] MEDS ORDERED: Amlodipine 10 MG TAB PO SCH (09:00)
--- NOTE | 2017-09-11 15:50 | EKG ---
Test Reason : Blood Pressure : / mmHG Vent. Rate : 078 BPM Atrial Rate : 078 BPM P-R Int : 154 ms QRS Dur : 092 ms QT Int : 404 ms P-R-T Axes : 072 -18 061 degrees QTc Int : 460 ms Normal sinus rhythm Normal ECG Confirmed by ALISSON GARCIA, SARAH ([id number]), photography editor PERRY CAMPOS ([id number]) on 09/11/2017 3:49:53 PM Referred By: Confirmed By:SARAH VINSON MD
== END 2017-08-06 18:21 | disposition home or self-care (01) ==
LOC: ERS 16:17 → 2SW 19:40
PROVIDERS: ADMIT Internal Medicine; ATTEND Internal Medicine
DX: R07.89 Other chest pain (principal); I25.10 Atherosclerotic heart disease of native coronary artery without angina pectoris; I16.0 Hypertensive urgency; E78.5 Hyperlipidemia, unspecified; K21.9 Gastro-esophageal reflux disease without esophagitis; J45.909 Unspecified asthma, uncomplicated; I12.9 Hypertensive chronic kidney disease with stage 1 through stage 4 chronic kidney disease, or unspecified chronic kidney disease; N18.2 Chronic kidney disease, stage 2 (mild); G47.33 Obstructive sleep apnea (adult) (pediatric); Z79.82 Long term (current) use of aspirin; Z79.02 Long term (current) use of antithrombotics/antiplatelets; Z79.899 Other long term (current) drug therapy; Z99.89 Dependence on other enabling machines and devices; Z88.5 Allergy status to narcotic agent; Z88.1 Allergy status to other antibiotic agents; Z91.041 Radiographic dye allergy status; Z91.018 Allergy to other foods; Z91.048 Other nonmedicinal substance allergy status; Z96.653 Presence of artificial knee joint, bilateral; Z90.49 Acquired absence of other specified parts of digestive tract; Z90.89 Acquired absence of other organs; Z98.890 Other specified postprocedural states; Z87.891 Personal history of nicotine dependence
CPT/HCPCS: 71010; 78452; 80053; 81003; 82550; 82553; 83690; 84484 ×2; 85025; 93005; 93017; 93970; 94660; 94760; 99285; A9500; G0378; 36415; J2785

== ENCOUNTER 2018-04-29 12:35 | Outpatient (CLI) | payer MEDICARE, OTHER ==
--- NOTE | 2018-04-29 15:52 | MRI ---
MRI CERVICAL SPINE WITHOUT CONTRAST: HISTORY: M48.02, stenosis of cervical spine. COMPARISON: None. FINDINGS: No marrow infiltrative process. Normal cervical lordosis. The paraspinal muscles are without significant edema. The cerebellar tonsils terminate at the level of the foramen magnum. No acute fracture or malalignment or listhesis. Levels are as follows: C2-3: Mild uncinate process hypertrophy. Small central and left paracentral posterior disk-osteophy te complex. Moderate facet arthropathy. Mild bilateral neural foraminal narrowing. C3-4: Mild uncinate process hypertrophy. Mild facet arthropathy. No neural foraminal or spinal can al narrowing. C4-5: There is moderate uncinate process hypertrophy. Right subforaminal and lateral recess posterior disk-osteophyte complex. Moderate right-sided neural foraminal narrowing. C5-6: There is ligament and facet hypertrophy. Circumferential disk-osteophyte complex. There is m oderate facet arthropathy. Moderate to severe right and left-sided neural foraminal narrowing. C6-7: Moderate uncinate process hypertrophy with bilateral subforaminal and lateral recess posterior disk-osteophyte complexes. Mild facet arthropathy. There is moderate bilateral neural foraminal na rrowing. IMPRESSION: Multilevel spondylosis, worst at C5-6. At C5-6, there is also a focal area of spinal canal narrowing due to posterior disk-osteophyte complex and ligamentum flavum hypertrophy to approximately 8 m. POS: [facility]
--- NOTE | 2018-04-29 16:01 | MRI ---
MRI OF THE THORACIC SPINE WITHOUT CONTRAST: INDICATION: History of tree falling on the patient 4 years ago with complaints of bilateral arm and leg pain. TECHNIQUE: Multiplanar, multisequence MRI images were obtained of the thoracic spine without contrast. FINDINGS: No acute fracture is evident. The spinal cord demonstrates a normal-caliber and signal intensity. T here is an inferior end plate compression abnormality of T6 that is chronic. There is a mild superio r end plate compression abnormality of T3 which is chronic. No appreciable central canal or neural f oraminal narrowing is demonstrated. IMPRESSION: Chronic end plate compression abnormalities of T3 and T6. POS: [facility]
--- NOTE | 2018-04-29 16:07 | MRI ---
MRI OF THE LUMBAR SPINE WITHOUT CONTRAST: INDICATION: History of a tree falling on the patient 4 years ago with bilateral arm and leg pain. TECHNIQUE: Multiplanar, multisequence images were obtained of the lumbar spine without contrast. No comparisons are available. FINDINGS: The conus is seen to terminate at approximately T12-L1. No acute fracture is evident. There is loss of the normal disk signal at L2-3 and L3-4. Small subcentimeter cyst is seen within the lateral aspect of the right mid kidney. There is lumbarization of the S1 vertebral level. There is a small central disc protrusion at the S1-S2 level. At L5-S1, there is moderate facet joint degenerative change. There is a mild broad-based bulge. The re is no appreciable central canal or neural foraminal narrowing. At L4-5, there is a broad-based bulge with mild to moderate facet joint degenerative change without a ppreciable central canal or neural foraminal narrowing. At L3-4, there is a broad-based bulge with mild facet joint degenerative change without appreciable c entral canal or neural foraminal narrowing. At L2-3, there is no appreciable central canal or neural foraminal narrowing. At L1-L2, there is no appreciable central canal or neural foraminal narrowing. At T12-L1, there is no appreciable central canal or neural foraminal narrowing. IMPRESSION: 1. Lumbarization of the S1 level. 2. Multilevel spondylosis of the lumbar spine. 3. No acute fracture is evident. POS: [facility]
== END 2018-04-29 12:36 | disposition home or self-care (01) ==
LOC: TBSIIMAG 12:35
PROVIDERS: ATTEND Surgery
DX: M54.6 Pain in thoracic spine (principal); M48.02 Spinal stenosis, cervical region; M47.26 Other spondylosis with radiculopathy, lumbar region; Q76.49 Other congenital malformations of spine, not associated with scoliosis; M47.892 Other spondylosis, cervical region; M43.8X4 Other specified deforming dorsopathies, thoracic region; M25.78 Osteophyte, vertebrae
CPT/HCPCS: 72141; 72146; 72148

== ENCOUNTER 2019-01-12 12:37 | Outpatient (CLI) | payer MEDICARE, OTHER ==
--- NOTE | 2019-01-12 15:38 | MRI ---
EXAM: Lumbar spine MRI without contrast. HISTORY: Lumbar radiculopathy, low back pain COMPARISON: 04/29/2018 FINDINGS: Multiplanar, multisequence MRI examination of the lumbar spine is performed. The conus medullaris region appears unremarkable. No evidence for abnormal marrow signal. Generalized disc desiccation changes and ligament facet hypertrophic changes. Transitional vertebrae at the lumbosacral level. T12-L1 disc level: Unremarkable. L1-L2 disc level: Unremarkable. L2-L3 disc level: Mild lateral recess stenosis and foraminal stenosis small left posterior lateral an nular fissure. L3-L4 disc level: Diffuse disc bulging with mild central canal and moderate lateral recess stenosis a nd mild bilateral foraminal stenosis with a small left posterior lateral annular fissure L4-L5 disc level: Mild diffuse disc bulging and mild lateral recess stenosis L5-S1 disc level: Unremarkable. IMPRESSION: Multilevel variable severity mostly moderate to mild canal, lateral recess, and foraminal stenosis.
== END 2019-01-12 12:38 | disposition home or self-care (01) ==
LOC: BICMRI 12:37
PROVIDERS: ATTEND Anesthesiology Pain Medicine
DX: M54.16 Radiculopathy, lumbar region (principal); M48.061 Spinal stenosis, lumbar region without neurogenic claudication
CPT/HCPCS: 72148

== ENCOUNTER 2019-04-13 13:34 | Outpatient (CLI) | payer MEDICARE, OTHER ==
[2019-04-13 14:45] LABS: Hemoglobin 14.3 g/dL (14.0-18.0); Mean Corpuscular HGB CONC 34.6 g/dL (32.0-36.0); Mean Corpuscular Hemoglobin 31.7 pg (27.0-31.0); Mean Corpuscular Volume 91.5 fL (78.0-98.0); Mean Platelet Volume 7.3 fL (7.4-10.4); Platelet Count 272 thou/uL (130-400); RBC Distribution Width 12.3 % (11.5-14.5)
[2019-04-13 14:57] LABS: Anion Gap 13 mmol/L (10-20); BUN (Urea Nitrogen) 18 mg/dL (8.4-25.7); Calc. Creatinine Clearance 0 mL/min (70-130); Calcium 9.4 mg/dL (7.8-10.44); Carbon Dioxide 28 mmol/L (23-31); Chloride 101 mmol/L (98-107); Estimated GFR-MDRD 63; Glucose 154 mg/dL (83-110); Potassium 4.6 mmol/L (3.5-5.1); Sodium 137 mmol/L (136-145)
== END 2019-04-13 13:35 | disposition home or self-care (01) ==
LOC: LABBT 13:34
PROVIDERS: ATTEND Surgery
DX: Z01.818 Encounter for other preprocedural examination (principal); M54.16 Radiculopathy, lumbar region; M48.061 Spinal stenosis, lumbar region without neurogenic claudication
CPT/HCPCS: 80048; 85027; 85610; 85730; 93005; 93010

== ENCOUNTER 2023-05-14 09:51 | Outpatient (CLI) | payer MEDICARE, OTHER | END 2023-05-14 09:52 | disposition home or self-care (01) | LOC: MRI 09:51 | PROVIDERS: ATTEND Psychiatry & Neurology Neurology | DX: M48.02 Spinal stenosis, cervical region (principal); M48.061 Spinal stenosis, lumbar region without neurogenic claudication; M47.812 Spondylosis without myelopathy or radiculopathy, cervical region; M51.36 Other intervertebral disc degeneration, lumbar region; M51.37 Other intervertebral disc degeneration, lumbosacral region | CPT/HCPCS: 72141; 72148 ==

== ENCOUNTER 2025-03-23 08:50 | Emergency (ER) | payer MEDICARE, OTHER ==
[2025-03-23] MEDS ORDERED: Ketorolac Tromethamine 30 MG (1 mL) VIAL ONE (09:10)
[2025-03-23] MEDS ORDERED: Cyclobenzaprine 10 MG TAB ONE (09:11)
== END 2025-03-23 11:50 | disposition home or self-care (01) ==
LOC: ERS 08:50
DX: M25.561 Pain in right knee (principal); I25.10 Atherosclerotic heart disease of native coronary artery without angina pectoris; I10 Essential (primary) hypertension; X58.XXXA Exposure to other specified factors, initial encounter; Y93.02 Activity, running; M79.604 Pain in right leg
CPT/HCPCS: 73564; 93971; 96372; 99284; J1885